=== PATIENT | female | born 1975 | race Caucasian/White ===

== ENCOUNTER 2024-08-22 09:28 | Outpatient (CLI) | payer OTHER ==
[2024-08-22 11:44] LABS: HEMATOCRIT 46.1 % (36.0-45.00); HEMOGLOBIN 15.3 g/dL (12.0-15.00); MEAN CELL VOLUME 86.4 fL (80.00-100.00); MEAN CORPUSCULAR HEMOGLOBIN 28.6 pg (27.00-32.0); MEAN CORPUSCULAR HGB CONC 33.1 g/dl (32.0-36.0); PLATELET COUNT 159 K/uL (150-450); RED BLOOD COUNT 5.33 M/uL (4.00-6.00); RED CELL DISTRIBUTION WIDTH 13.9 % (11.5-14.5)
[2024-08-22 11:44] LABS: URINE APPEARANCE Clear; URINE BACTERIA 1209.2 uL (0.0-1933); URINE BILIRRUBIN Negative (NEGATIVE); URINE BLOOD Negative; URINE COLOR Yellow; URINE GLUCOSE Negative (NEGATIVE); URINE KETONE Negative (NEGATIVE); URINE LEUKOCYTE Small; URINE NITRATE Negative; URINE PROTEIN Negative (NEGATIVE); URINE RBC 7.2 uL (0.0-20.8); URINE UROBILINOGEN 0.2 E.U./dl; URINE WBC 42.5 uL (0.0-23.2)
[2024-08-22 13:06] LABS: ALBUMIN 3.8 gm/dL (3.4-5.0); BILIRUBIN TOTAL 0.55 mg/dL (0.3-1.2); CALCIUM 9.4 mg/dL (8.5-10.1); CHOL HDL RATIO 3.3 (0-5.0); CREATININE SERUM 0.68 mg/dL (0.55-1.02); GFR 91.22; GLOBULINA 4.2 G/DL (2.4-3.5); POTASSIUM 4.26 mEq/L (3.5-5.1); TSH 2.65 uIU/mL (0.358-3.74)
[2024-08-23 12:09] LABS: hav igm Negative (Negative); hcv Non Reactive (Non Reactive); hep b c Negative (Negative); hep b s ag Negative (Negative)
== END 2024-08-22 09:32 | disposition home or self-care (01) ==
LOC: LAB 09:28
DX: E78.5 Hyperlipidemia, unspecified (principal); E03.9 Hypothyroidism, unspecified; E11.8 Type 2 diabetes mellitus with unspecified complications; N93.0 Postcoital and contact bleeding; E55.9 Vitamin D deficiency, unspecified; Z11.3 Encounter for screening for infections with a predominantly sexual mode of transmission; A56.09 Other chlamydial infection of lower genitourinary tract; A54.03 Gonococcal cervicitis, unspecified; K75.9 Inflammatory liver disease, unspecified; A53.9 Syphilis, unspecified; B20 Human immunodeficiency virus [HIV] disease; A64 Unspecified sexually transmitted disease

== ENCOUNTER 2024-09-23 12:13 | Outpatient (CLI) | payer OTHER ==
[2024-09-23 12:49] LABS: URINE APPEARANCE Cloudy; URINE BILIRRUBIN Negative (NEGATIVE); URINE BLOOD Negative; URINE COLOR Yellow; URINE GLUCOSE Negative (NEGATIVE); URINE KETONE Negative (NEGATIVE); URINE LEUKOCYTE Trace; URINE NITRATE Negative; URINE PROTEIN Negative (NEGATIVE); URINE UROBILINOGEN 0.2 E.U./dl
[2024-09-23 12:53] LABS: URINE BACTERIA 3428.3 uL (0.0-1933); URINE EPITHELIAL CELLS 81.6 uL (0.0-38.8); URINE RBC 4.2 uL (0.0-20.8); URINE WBC 42.9 uL (0.0-23.2)
[2024-09-23 14:56] LABS: FREE TRIODOTIRONINE 2.9 pg/ml (2.18-3.98); T4 FREE 1.17 NG/ML (0.76-1.46); TSH 2.04 uIU/mL (0.358-3.74)
== END 2024-09-23 12:14 | disposition home or self-care (01) ==
LOC: LAB 12:13
DX: D51.8 Other vitamin B12 deficiency anemias (principal); E55.9 Vitamin D deficiency, unspecified; E34.9 Endocrine disorder, unspecified; E56.8 Deficiency of other vitamins; E66.812 Obesity, class 2